=== PATIENT | female | born 1995 | race Caucasian/White ===

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

== ENCOUNTER → 2017-03-06 | Outpatient (CLI) | payer BC ==
--- NOTE | 2017-03-06 14:53 | DIAGNOSTIC IMAGING REPORT ---
RIGHT HAND MIN 3 VIEWS ROUTINE CLINICAL HISTORY: Right hand pain COMPARISON: None. DISCUSSION: No fractures or dislocations are visualized. The bony mineralization appears normal. There is no erosive disease. There is a bone island within the distal aspect of the proximal phalanx of the index finger. IMPRESSION: No fractures, destructive lesions or bony erosions are visualized. Electronically signed by: João Villa M.D. 03/06/2017 2:51 PM Dictated Date/Time: 03/06/2017 2:50 PM
--- NOTE | 2017-03-13 10:39 | CODING QUERY NO DIAGNOSIS ---
TREATMENT RENDERED WITHOUT A DIAGNOSIS To promote full compliance with coding requirements relating to patient care, physician participation is requested in all cases of pre coder uncertainty. Please assist us with providing a diagnosis/symptom for the test(s) below: A diagnosis/symptom was not documented on your Order. A valid diagnosis/symptom is required to bill all insurances. Please remember that we are unable to code a diagnosis of rule out, probable, possible, questionable, or suspected. Tests that require a diagnosis: * HAND MIN 3 VIEWS ROUTINE DIAGNOSIS: Provider Signature: Date: Thank you Sherly Bradford [employer] Information Management Once completed, please kindly fax back to [phone] For questions please call [phone]
== END | disposition home or self-care (01) ==
LOC: C.RADBC 14:28
PROVIDERS: ATTEND Family Medicine
DX: M79.641 Pain in right hand (principal)

== ENCOUNTER → 2017-12-06 | Outpatient (CLI) | payer BC | END | disposition home or self-care (01) | LOC: C.LABSPEC 16:54 | PROVIDERS: ATTEND Obstetrics & Gynecology | DX: Z01.419 Encounter for gynecological examination (general) (routine) without abnormal findings (principal) ==